=== PATIENT | male | born 1955 | race Caucasian/White ===

== ENCOUNTER 2024-08-19 15:10 | Outpatient (AMB) | payer OTHER, SELFPAY ==
--- NOTE | 2024-08-19 15:17 | A.OFFVIS_ITS ---
Intake Visit Reasons: 6 month f/u Allergies No Known Allergies Allergy (Verified 08/18/24 08:14) Medication List - Last Reconciled 08/19/24 by Sera Nolasco CNP empagliflozin (Jardiance) 10 mg PO DAILY eplerenone 50 mg PO DAILY fenofibrate nanocrystallized 48 mg PO DAILY furosemide mg PO gabapentin mg PO metoprolol tartrate 25 mg PO DAILY mirtazapine 30 mg PO BEDTIME mycophenolate sodium 540 mg PO BID potassium chloride ER 10 mEq PO BID prednisone mg PO rosuvastatin 20 mg PO BEDTIME HPI Comments Details: 68-year-old man with long history of Essie's granulomatosis who had kidney failure and renal transplant in 2006, diabetes, and peripheral neuropathy. Symptoms are controlled to some degree with gabapentin 600mg twice a day. He cannot tolerate higher dose. He was doing okay. Peripheral neuropathy symptoms stable with medication. Pain may be a bit better lately. Balance off at times, but no falls. He had some occasional intermittent numbness in hands that not seemed to be better lately. Did not try wrist splints. Sleep was okay. [facility] Medical History (Updated 08/19/24 @ 15:21 by Sera oNlasco CNP) Neuropathy Diabetes mellitus CKD (chronic kidney disease) HLD (hyperlipidemia) Carpal tunnel syndrome of right wrist Essie's granulomatosis with renal involvement Peripheral neuropathy Surgical History (Updated 08/18/24 @ 08:16 by Elmer Whitlock MA) History of kidney surgery Review of Systems Const Denies chills, Denies daytime sleepiness, Reports difficulty sleeping, Denies fatigue, Denies fever(s), Denies frequent falls, Denies headache(s), Denies increased appetite, Denies poor appetite, Denies snoring, Denies weakness, Denies weight gain and Denies weight loss Eyes Denies loss of vision ENT Denies vertigo, Denies dizziness, Denies headache(s) and Denies neck pain Card Denies chest pain at rest, Denies chest pain with activity, Denies syncope, Denies leg edema, Denies palpitations, Denies dyspnea and Denies dyspnea on exertion Resp Denies cough, Denies dyspnea, Denies dyspnea on exertion and Denies snoring GI Denies abdominal pain, Denies constipation, Denies heartburn, Denies diarrhea and Denies nausea Denies urinary frequency, Denies urinary incontinence and Denies urinary urgency Musc Reports abnormal gait, Reports back pain, Reports myalgias, Denies arthralgias, Denies neck pain, Reports numbness and Reports tingling Neuro Reports abnormal gait, Denies vertigo, Denies dizziness, Denies syncope, Denies frequent falls, Denies headache(s), Denies lack of coordination, Denies loss of vision, Denies memory loss, Reports numbness, Denies Other visual disturbances, Denies restless legs, Denies seizure-like activity, Reports tingling, Denies paresthesias, Denies tremor(s) and Denies weakness Psych Reports anxiety, Reports depression, Denies auditory hallucinations, Denies memory loss and Denies visual hallucinations Endo Denies fatigue and Denies palpitations Physical Exam Const Other: General Appearance:? normal, in no acute distress. Heart:? S1, S2 normal, no murmurs. Lungs:? clear anteriorly and posteriorly. Musculoskeletal:? normal. Extremities:? no edema. Psych:? alert, oriented, cognitive function intact, cooperative with exam. Neuro Other: Abnormal Neurological Findings:?areflexia, proximal weakness in hip flexors Mental Status: alert and oriented X 3. Normal attention, orientation, memory, and affect. Cranial Nerves: Pupils are equal, round, and reactive to light. External ocular muscles are intact. Visual davis are full, no ptosis. Face is symmetrical, no facial weakness or droop. Facial sensations are normal. Tongue protrudes in midline. Palate elevates symmetrically. Shoulder shrugging is normal Motor Examination: Hip flexor weakness 4+/5, otherwise normal muscle tone, bulk and strength. No atrophy or fasciculations. No drift of the extended upper extremities. DTR 2+. Plantars are flexor. Straight Leg Raisin degrees. Sensory Exam: Normal light touch, temperature, pinprick, vibration, and joint- position sensations. Rhomberg sign is absent. Coordination: No ataxia. No titubation. Idavin-vc-adpo, zjiz-zxnt-nbzn test, and rapid alternating movements were normal. Gait Exam: Within normal limits. Cerebellar Signs: Wfcicd-sx-nkyv and asut-xr-orpf is normal. No dysdiadochokinesia. Extrapyramidal System: No tremor, rigidity with normal facial expressions. No bradykinesia. No bradyphrenia. Normal arm swing and posture. No propulsion or retropulsion. Speech: Normal. No dysphasia or dysarthria. Assessment & Plan Assessment & Plan (1) Peripheral neuropathy: Code(s): G62.9 - Polyneuropathy, unspecified Category: Medical Qualifiers: Peripheral neuropathy type: polyneuropathy, unspecified Qualified Code(s): G62.9 - Polyneuropathy, unspecified Plan: Continue gabapentin 600mg 1 tablet twice a day. (2) Carpal tunnel syndrome of right wrist: Code(s): G56.01 - Carpal tunnel syndrome, right upper limb Category: Medical Plan: May use wrist splint at night as needed. (3) Essie's granulomatosis with renal involvement: Code(s): M31.31 - Essie's granulomatosis with renal involvement Category: Medical Plan: . Plan . Coding Level of Care Code Est Pt Level 4 (18091) Diagnoses Peripheral polyneuropathy G62.9 Peripheral neuropathy type: polyneuropathy, unspecified Carpal tunnel syndrome of right wrist G56.01 Essie's granulomatosis with renal involvement M31.31
--- OUTSIDE RECORDS SUMMARY | 2024-08-19 16:23 | XMS_ITS | Clinical Summary ---
Author Organization [facility] Address [address] [place] [address] Care Team Providers Care Furnace Combustion Tester Name Role Phone Kinjal Medellin MD Primary Care Provider [phone] Social History Tobacco Use Types Packs/Day Years Used Date Smoking Tobacco: Never Assessed Sex and Gender Information Value Date Recorded Sex Assigned at Not on file Legal Sex Male 2:20 PM EDT Gender Identity Not on file Sexual Orientation Not on file Plan of Treatment Health Maintenance Due Date Last Done Comments Hepatitis C Virus Screening 1955 DTaP/Tdap/Td Vaccines (1 - Tdap) 1972 Colonoscopy 1998 Pneumococcal Vaccines 50+ (1 of 1 - PCV) 10/18/2003 Zoster (Shingles) Vaccine (1 of 2) 10/18/2003 COVID-19 Vaccine (2 - 2023-2 5 season) 2023 08/26/2020 Influenza Vaccine 09/05/2024 12/07/2015, 01/04/2007 RSV Vaccine 60 years and older and Patients (1 - 1-dose 75+ series) 2028 Hepatitis B Vaccines Aged Out No long er eligible based on patient's age to complete this topic [place] [facility] [place] Care Teams Furnace Combustion Tester Relationship Specialty Start Date End Date Kinjal Medellin MD [address] [place] [id number] PCP - General 12/07/21
--- OUTSIDE RECORDS SUMMARY | 2024-08-19 16:23 | XMS_ITS ---
Author Name [facility] Organization Unknown Problems Problem Status Onset Date Problem Type Date of Resoluti on Source Kidney replaced by transplant active EncounterDiagnosisAct CCT Encounters Encounter Type Encounter Reason Primary Diagnosis Location Date Ambulatory Kidney transplan t status [facility] 04/04/2022 Ambulatory Unspecified complication of kidney transplant [facility] 12/09/2021 Care Team Organization Name Specialty Phone Email Start Date End Da markos [facility] 04/04/2022 [facility] PCP,No Primary Care 12/09/2021 [facility] NO PCP Primary Care 12/01/2021 12/01/2021 [facility]
--- OUTSIDE RECORDS SUMMARY | 2024-08-19 16:23 | XMS_ITS | Encounter Summary ---
Author Organization [facility] Address [address] [place] [address] Phone Care Team Providers Care Comber Setter Name Role Phone Kinjal Medellin MD Primary Care Provider [phone] Reason for Visit * Reason Comments Med Refill Encounter Details Date Type Department Care Team (Late st Contact Info) Description 10/20/2022 Refill [facility] [address] [place] [id number] Yogesh Graves MD Social History Tobacco Use Types Packs/Day Years Used Date Smoking Tobacco: Never Smokeless Tobacco: Never Alcohol Use Standard Drinks/Week Comments Yes 0 (1 standard drink = 0.6 oz pur e alcohol) One beer a month Education Answer Date Recorded What is the highest level of school you have completed or the highest degree you have received? 12th grade 06/25/2020 Sex and Gender Information Value Date Recorded Sex Assigned at Not on file Legal Sex Male 5:26 PM EST Gender Identity Not on file Sexual Orientation Not on file documented as of this encounter Plan of Treatment Upcoming Encounters Date Type Department Care Team (Late st Contact Info) Description 09/05/2024 11:45 AM EDT Office Visit [facility] [address] [facility] [address] [place] [address] Edd Knight MD [address] [facility] [address] [place] [address] 09/10/2024 Orders Only [facility] [address] [address] Edd Knight MD [phone] [address] Kidney replaced by transplant documented as of this encounter Visit Diagnoses Not on filedocumented in this encounter Care Teams Comber Setter Relationship Specialty Start Date End Date Kinjal Medellin MD [address] [place] [id number], [address] [place] [address] PCP - General 02/16/20 documented as of this encounter
== END 2024-08-19 15:36 | disposition home or self-care (01) ==
LOC: HO.HSM 15:11
PROVIDERS: PCP Internal Medicine; Referring Provider Internal Medicine; Visit Provider Registered Nurse
DX: G62.9 Polyneuropathy, unspecified (principal); G56.01 Carpal tunnel syndrome, right upper limb; M31.31 Wegener's granulomatosis with renal involvement
CPT/HCPCS: 99214

== ENCOUNTER → 2024-08-19 15:10 | Outpatient (BNVA) | payer OTHER, SELFPAY | PROVIDERS: PCP Internal Medicine; Referring Provider Internal Medicine; Visit Provider Registered Nurse | DX: G56.01 Carpal tunnel syndrome, right upper limb (principal); G62.9 Polyneuropathy, unspecified; M31.31 Wegener's granulomatosis with renal involvement | CPT/HCPCS: 99212 ==